=== PATIENT | male | born 1995 | race Caucasian/White ===

== ENCOUNTER 2020-10-08 11:33 | Emergency (ER) | payer BC ==
[2020-10-08 11:53] VITALS: RESP 18
[2020-10-08 12:28] LABS: Appearance,Urine Clear (Clear); Bilirubin,Urine Negative (Negative); Blood,Urine Negative (Negative); Color,Urine Yellow; Glucose,Urine (UA) Negative (Negative); Ketones,Urine Negative (Negative); Leukocyte Esterase,Urine Negative (Negative); Mucus,Urine Moderate /hpf; Nitrite,Urine Negative (Negative); PH, Urine 7.5 (5.0-8.0); Protein,Urine 1+ (Negative); RBC,Urine <1 /hpf (0-5); Specific Gravity,Urine 1.024 (1.001-1.035); WBC,Urine 1 /hpf (0-5)
--- NOTE | 2020-10-08 12:28 | ED ---
General Adult HPI - General Chief complaint: Urogenital Stated complaint: Groin pain Time Seen by Provider: 10/08/20 12:02 Source: patient, RN notes reviewed, old records reviewed Mode of arrival: ambulatory Limitations: no limitations - History of Present Illness Initial comments: 25-year-old presents for evaluation of left scrotal pain for the past 4 months. This been intermittent. No injury. No dysuria. No inguinal bulging or mass. Patient denies any fever or chills. No change in his bowel habits. Patient denies hematuria. - Related Data Allergies Allergy/AdvReac Type Severity Reaction Status Date / Time No Known Allergies Allergy Verified 10/08/20 11:53 Review of Systems ROS Statement: Those systems with pertinent positive or pertinent negative responses have been documented in the HPI. ROS Other: All systems not noted in ROS Statement are negative. Past Medical History Past Medical History: No Reported History History of Any Multi-Drug Resistant Organisms: None Reported Past Surgical History: No Surgical Hx Reported Past Psychological History: No Psychological Hx Reported Smoking Status: Never smoker Past Alcohol Use History: None Reported Past Drug Use History: None Reported General Exam Limitations: no limitations General appearance: alert, in no apparent distress Head exam: Present: atraumatic, normocephalic Eye exam: Present: normal appearance, PERRL ENT exam: Present: normal exam Neck exam: Present: normal inspection. Absent: tenderness, meningismus Respiratory exam: Present: normal lung sounds bilaterally. Absent: respiratory distress, wheezes GI/Abdominal exam: Present: soft. Absent: distended, tenderness, hernia exam: Present: vertical testicular lie. Absent: testicular tenderness, urethral discharge, scrotal swelling Extremities exam: Present: normal inspection, normal capillary refill Neurological exam: Present: alert, oriented X3, CN II-XII intact. Absent: motor sensory deficit Psychiatric exam: Present: normal affect, normal mood Skin exam: Present: warm, dry, intact. Absent: cyanosis, diaphoretic, erythema Course Vital Signs 10/08/20 11:50 Temperature 98.1 F Pulse Rate 93 Respiratory 18 Rate Blood Pressure 159/104 O2 Sat by Pulse 97 Oximetry Medical Decision Making - Medical Decision Making Urinalysis negative for signs of infection, ultrasound performed shows good arterial flow to both testicles. No hydrocele, no signs of epididymitis or orchitis patient will be following up with his primary care physician, if symptoms do persist may require urology follow-up. - Lab Data Lab Results 10/08/20 Range/Units 12:15 Urine Color Yellow Urine Appearance Clear (Clear) Urine pH 7.5 (5.0-8.0) Ur Specific [place] 1.024 (1.001-1.035) Urine Protein 1+ H (Negative) Urine Glucose (UA) Negative (Negative) Urine Ketones Negative (Negative) Urine Blood Negative (Negative) Urine Nitrite Negative (Negative) Urine Bilirubin Negative (Negative) Urine Urobilinogen 8.0 (<2.0) mg/dL Ur Leukocyte Esterase Negative (Negative) Urine RBC <1 (0-5) /hpf Urine WBC 1 (0-5) /hpf Urine Mucus Moderate H (None) /hpf Disposition Clinical Impression: Testicular pain, left Disposition: HOME SELF-CARE Condition: Good Instructions (If sedation given, give patient instructions): Testicle Pain (ED) Is patient prescribed a controlled substance at d/c from ED?: No Referrals: Kamaljit Borrego DO [Primary Care Provider] - 1-2 days Jose Landeros MD [STAFF PHYSICIAN] - 1-2 days Time of Disposition: 12:55
--- NOTE | 2020-10-08 12:50 | US ---
EXAMINATION TYPE: US scrotum with doppler. DATE OF EXAM: 10/08/2020 COMPARISON: NONE CLINICAL HISTORY: 25-year-old male left Testicular pain. Pt states left scrotal numbness x 4 months, has recently gotten worse TECHNIQUE: Grayscale and color Doppler Duplex imaging performed of the scrotum. FINDINGS: EXAM MEASUREMENTS: TESTICLES: Right Testicle: 5.0 x 2.3 x 3.9 cm Left Testicle: 4.9 x 2.7 x 3.7 cm EPIDIDYMIS HEAD: Right Epididymis: 1.1 cm Left Epididymis: 1.0 cm Doppler performed to assess for testicular vascularity; good bilateral color flow and waveforms are s een. There is no evidence of testicular torsion. Presence of hydroceles: No Presence of varicoceles: No Subeditor notes:Minimal heterogeneous testicles bilaterally, however no abnormality visualized to account for pt's symptoms IMPRESSION: No sonographic evidence for testicular torsion or epididymoorchitis. No hydrocele or varicocele.
[2020-10-08 13:11] VITALS: BP 153/80; PULSE 72; TEMP 98.6
== END 2020-10-08 13:17 | disposition home or self-care (01) ==
LOC: EC 11:33
DX: N50.812 Left testicular pain (principal)
CPT/HCPCS: 76870; 81001; 93975; 99284